=== PATIENT | female | born 1960 | race Caucasian/White ===

== ENCOUNTER 2016-09-12 12:34 | Day surgery (SDC) | payer BC ==
[2016-09-10 13:56] LABS: BASOPHILS 0.2 %; BASOPHILS ABSOLUTE 0.02 10/3/uL (0.0-0.16); EOSINOPHILS ABSOLUTE 0.18 10/3/uL (0.0-0.53); HEMATOCRIT 42.9 % (36.0-48.0); IMMATURE GRANULOCYTES 0.7 %; IMMATURE GRANULOCYTES ABSOLUTE 0.06 10/3/uL (0.0-0.11); LYMPHOCYTES 21.6 %; LYMPHOCYTES ABSOLUTE 1.95 10/3/uL (0.67-4.30); MEAN CORPUS HGB CONC 32.6 g/dL (32.0-36.0); MEAN CORPUSCULAR HEMOGLOB 30.8 pg (26.0-34.0); MEAN CORPUSCULAR VOLUME 94.3 fL (80-100); MEAN PLATELET VOLUME 9.7 fL (9.2-13.0); MONOCYTES 7.4 %; MONOCYTES ABSOLUTE 0.67 10/3/uL (0.21-1.20); NEUTROPHILS 68.1 %; NEUTROPHILS ABSOLUTE 6.15 10/3/uL (2.02-8.40); PLATELET COUNT 304 10/3/uL (150-400); RBC DISTRIBUTION WIDTH 14.5 % (12.0-16.0); RED CELL COUNT 4.55 10/6/uL (4.0-5.6)
[2016-09-10 13:57] LABS: MANUAL DIFF NO %
[2016-09-10 14:11] LABS: A/G RATIO 1.3 (0.7-1.9); ALKALINE PHOSPHATASE 55 U/L (45-117); BUN (BLOOD UREA NITROGEN) 8 MG/DL (6-23); CALCIUM, SERUM 9.8 MG/DL (8.5-10.4); CHLORIDE, SERUM 100 MMOL/L (96-112); CO2 (CARBON DIOXIDE) 31 MMOL/L (24-34); CREATININE 0.66 MG/DL (0.55-1.02); GFR AFRICAN AMERICAN 115 ML/MIN (>=60); GFR NON AFRICAN AMERICAN 99 ML/MIN (>=60); GLUCOSE, SERUM 69 MG/DL (60-99); POTASSIUM, SERUM 4.4 MMOL/L (3.5-5.3); SGOT(AST) 12 U/L (5-40); SGPT(ALT) 25 U/L (5-65); SODIUM, SERUM 139 MMOL/L (135-148); TOTAL BILIRUBIN 0.7 MG/DL (0-1.2)
--- NOTE | ~2016-09-12 | PREOPHP ---
PreOp History and Physical [id number] [place]. [address] NAME: JOSSELYN STOVER : 62 STATUS : [facility]#: [id number] AGE: 56 ADM/REG DATE : 09/12/16 MR#: [id number] REPORT SERV DATE: 09/24/16 DICTATED BY: KIT WRIGHT III DATE: 09/08/16 REPORT STATUS : Draft TRANSCRIBED BY: AZAM DATE: 09/08/16 HISTORY OF PRESENT ILLNESS: This 56-year-old female comes to the operating room for a left axillary lymph node biopsy to facilitate the diagnosis of lymphoma. The patient is recently diagnosed with a follicular lymphoma. She notes a submandibular knot on the left side of her face, which was noticed at the end of 2014. Her chiropractor ordered a CT scan, which showed diffuse lymph nodes which were nonspecific. She was given multiple courses of antibiotics, but the lymph nodes did not go away. She recently saw an ENT physician and a fine-needle aspirate was performed, which shows low-grade follicular lymphoma. Her current PET scan shows diffuse lymphadenopathy with the most prominent active lymph node being in the left axilla. She comes now for left axillary lymph node biopsy to confirm and characterize her lymphoma. The patient complains of difficulty with her salivary glands. She has had intermittent neck swelling and pain since 2014. The patient has had a previously palpable left axillary lymph node. However, she states she took a round of steroids and the lymph node was no longer palpable. MEDICATIONS: Klonopin, Minivelle, Prozac, turmeric, vitamins, Wellbutrin, Spirulina, Depakote. PAST MEDICAL HISTORY: Otherwise unremarkable, except for recently diagnosed follicular lymphoma. ALLERGIES: NONE. PAST SURGICAL HISTORY: Status post hysterectomy. FAMILY HISTORY: Positive for breast cancer, heart disease, and leukemia. SOCIAL HISTORY: The patient has a history of tobacco abuse. She has a history of alcohol use. REVIEW OF SYSTEMS: The patient complains of weight loss, and her 14-point review of systems is otherwise unremarkable. PHYSICAL EXAMINATION: GENERAL: This is an obese female, in no acute distress. She is alert and oriented x3. VITAL SIGNS: Blood pressure 114/66, pulse 74, temperature 97. NECK: Remarkable for bilateral submandibular masses. No discrete axillary lymph nodes are palpable, although these are seen on CT scan. She has bilateral submandibular masses palpable. NEUROLOGIC: Cranial nerves 2 through 12 are normal. LUNGS: Clear. CARDIAC: Normal. ABDOMEN: Soft and nontender. PreOp History and Physical [address] [address] NAME: JOSSELYN STOVER : 62 STATUS : [facility] PAT#: [id number] AGE: 56 ADM/REG DATE : 09/12/16 MR#: [id number] REPORT SERV DATE: 09/24/16 DICTATED BY: KIT WRIGHT III DATE: 09/08/16 REPORT STATUS : Draft TRANSCRIBED BY: AZAM DATE: 09/08/16 LABORATORY DATA: Recent PET scan shows findings consistent with lymphoma involving bilateral parotids, submandibular glands, small upper cervical lymph nodes, bilateral left greater than right axillary lymph nodes which are FDG avid, bulky left mesenteric lymph node, retroperitoneal nodes, left external iliac and bilateral inguinal lymph nodes. There is noted to be a 2.8 cm left axillary lymph node, which is particularly FDG avid. This is a level 1 lymph node. ASSESSMENT: 1. 56-year-old female with a follicular lymphoma by fine-needle biopsy, with need for excision of an entire lymph node to complete workup and characterization of this lymphoma. 2. Obesity. 3. Depression. PLAN: The patient comes to the operating room now for a left axillary lymph node excisional biopsy. This procedure, the risks, benefits, and alternatives including, but not limited to the risk for bleeding; infection; pain; swelling; scarring; deformity to the area; seroma formation; hematoma formation; lymphatic drainage; nerve injury, chronic paresthesia or pain in the arm, shoulder, or axilla; nerve injury, muscle weakness or paralysis in the muscles of upper back or shoulder; and unforeseen complications including deep venous thrombosis, pulmonary embolus, myocardial infarction, stroke, pneumonia, and have been explained to the patient prior to surgery. Her questions have been answered, and she understands the risks and agrees to surgery as planned. [facility]/AZAM Kit Wright III, M.D. / [id number] CC: Vega Rosa Jr., M.D.
--- NOTE | ~2016-09-12 | OP ---
Record Of Operation [facility] [address] [place]. [address] NAME: JOSSELYN STOVER : 62 STATUS : [facility]#: [id number] AGE: 56 ADM/REG DATE : 09/12/16 MR#: [id number] REPORT SERV DATE: 09/12/16 DICTATED BY: KIT WRIGHT III DATE: 09/12/16 REPORT STATUS : Draft TRANSCRIBED BY: MODAbhay DATE: 09/12/16 DATE OF PROCEDURE: 09/12/2016 PREOPERATIVE DIAGNOSIS: Probable malignant lymphoma, with need for complete axillary lymph node resection and Port-A-Cath placement to allow for chronic IV access for chemotherapy. PREOPERATIVE DIAGNOSIS: Probable malignant lymphoma, with need for complete axillary lymph node resection and Port-A-Cath placement to allow for chronic IV access for chemotherapy. PROCEDURES: 1. Right subclavian vein Port-A-Cath placement with fluoroscopy. 2. Excision of deep left axillary lymph node. ANESTHESIA: General with intubation. COMPLICATIONS: None. ESTIMATED BLOOD LOSS: Less than 5 mL. SPECIMENS: Left axillary lymph node x2. DRAINS: None. LAP AND SPONGE COUNT: Correct x3. BRIEF HISTORY: This 56-year-old female was recently diagnosed with lymphoma, on core needle biopsy. It was felt that excisional biopsy of a very FDG avid, enlarged left axilla lymph node was indicated. In addition, her medical oncologist had requested subclavian vein Port- A-Cath placement to allow for chronic IV access for chemotherapy. These procedures, the risks, benefits, and alternatives, including but not limited to the risk for bleeding, infection, pneumothorax, air embolus, pericardial tamponade, failure of the port to function, infection of the port or subclavian vein thrombosis requiring removal the port, dislodgement of the Port-A-Cath tubing requiring extraction, and unforeseen complications including deep venous thrombosis, pulmonary embolus, myocardial infarction, stroke, pneumonia, and , were fully and completely explained to the patient prior to surgery. The possibility of nerve injury, chronic paresthesia, pain in the arm, shoulder or axilla, pain in the axilla, seroma formation or hematoma formation in the axilla, nerve injuries, muscle weakness or paralysis in muscles of upper back or shoulder, chronic lymphedema of the arm, and unforeseen complications including deep venous thrombosis, pulmonary embolus, myocardial infarction, stroke, pneumonia, and , were explained the patient prior to surgery. Her questions were answered. She understood the risks and agreed to surgery as planned. DESCRIPTION OF PROCEDURE: After being properly identified and after discussing the risks of surgery with her again in the preoperative area, and after identifying and palpating the Record Of Operation [address] [place]. [address] NAME: JOSSELYN STOVER : 62 STATUS : [facility]#: [id number] AGE: 56 ADM/REG DATE : 09/12/16 MR#: [id number] REPORT SERV DATE: 09/12/16 DICTATED BY: KIT WRIGHT III DATE: 09/12/16 REPORT STATUS : Draft TRANSCRIBED BY: AZAM DATE: 09/12/16 enlarged left axillary lymph node, the patient was taken to the operating room and placed in the supine position on the operating room table. General anesthesia was administered. She was intubated without difficulty. The chest and neck and left arm and axilla were prepped and draped sterilely in the usual fashion. After an appropriate "time-out" per JCAHO standards, an 18-gauge needle was used to identify the right subclavian vein. The vein was identified on the first pass of the needle. A guidewire was passed through the needle, and the needle was removed. Fluoroscopy was performed, confirming the tip of the guidewire to be in the correct position in the superior vena cava. A small transverse incision was then made at the exit site of the guidewire from the skin. A subcutaneous pocket was made of the appropriate size for the Port-A-Cath housing. The Port-A-Cath housing and tubing were assembled. Fluoroscopy was performed, confirming the tip of the guidewire to be in the correct position in the superior vena cava. The Port-A-Cath housing was cut to the appropriate length and the housing and tubing were flushed with a heparin solution. The introducer was placed over the guidewire. The guidewire and inner dilator were removed. The Port-A-Cath tubing was then passed through the sheath as the sheath was peeled away. This went very smoothly. The Port-A-Cath housing was positioned in the infraclavicular pocket. It was secured in place with 2-0 silk sutures. Repeat fluoroscopy was performed, confirming the tip of the Port-A-Cath tubing to be in the correct position in the superior vena cava. The port was accessed with a Lucio needle. It was noted to aspirate blood easily. It was then flushed with heparin solution and noted to flush easily. Hemostasis was assured. The subcutaneous tissue was closed with running 3-0 chromic suture. The skin was closed with running subcuticular 4-0 Monocryl stitch. The incision was injected 0.5% Marcaine. We then turned our attention to the left axilla. An incision was made transversely in the left axilla over the palpable lymph node. The incision continued through subcutaneous tissue. Hemostasis was controlled with cautery. The incision was continued through the subcutaneous tissue down to the axilla. The axillary vein was identified. Inferior to this was extremely large lymph node about 3 cm in diameter. Using sharp dissection, this lymph node was carefully dissected free from the surrounding tissues. There was a small adjacent lymph node which was also resected and removed. The thoracodorsal nerve was identified. This was in the area and was carefully protected and not encroached upon or injured. Hemostasis was assured. The subcutaneous tissue was closed with a running 3-0 chromic suture and skin was closed with running subcuticular 4-0 Monocryl stitch. The incision was injected with 0.5% Marcaine. Dressings were applied. Anesthesia was reversed. The patient was taken to the recovery room in stable condition. She tolerated the procedure well. Her family was informed results of surgery. The patient will be discharged when stable and comfortable after chest x-ray has been cleared per Radiology. Her family was advised that she should keep the wounds clean and dry for 48 hours, that she should not drive for three to four days after surgery or while using narcotics and that she should resume her usual medications. She was asked to return in two weeks for followup or sooner if any fever, chills, wound drainage, or other problems prior to that time. She was given a prescription for Percocet 7.5 one t.i.d., #12, as needed for pain, which she was advised not to use while driving. Frozen section of the lymph node confirmed lymphoma. Record Of Operation [facility] [address] [place]. [address] NAME: JOSSELYN STOVER : 62 STATUS : [facility] PAT#: [id number] AGE: 56 ADM/REG DATE : 09/12/16 MR#: [id number] REPORT SERV DATE: 09/12/16 DICTATED BY: KIT WRIGHT III DATE: 09/12/16 REPORT STATUS : Draft TRANSCRIBED BY: AZAM DATE: 09/12/16 [facility]/AZAM Kit Wright III, M.D. / [id number] CC: Vega Reyna III, M.D.
[~2016-09-12 12:34] MED LIST: DEPAKOTEER PO; KLONO5 PO; MINIVELLE1 EAC1 TOP; PROZAC PO; TURMERIC; VITAMIN B COMPLEX PO; VITAMIN D1000 UNI1 PO; WELLXL150 PO; [UNRECOGNIZED DRUG - OTHER]
[2016-09-23] MEDS ORDERED: ATV.5 PO (13:37)
[2016-09-23] MEDS ORDERED: NEULASTA SC (13:39)
[2016-09-23] MEDS ORDERED: OXYCOD PO (13:40)
[2016-09-23] MEDS ORDERED: CLARIT10 PO (13:42)
[2016-09-23] MEDS ORDERED: MIRALAX POWDER1 PKT PO (13:43)
[2016-09-23] MEDS ORDERED: ZOFRAN8 PO (13:44)
[2016-09-23] MEDS ORDERED: ZANTAC 75 PO (13:44)
[2016-09-23] MEDS ORDERED: MUCINEX600 MG PO (13:45)
[2016-09-23] MEDS ORDERED: GAS-X PO (13:46)
[2016-09-23] MEDS ORDERED: MD ANDERSON PO (13:48)
== END 2016-09-12 17:30 | disposition home or self-care (01) ==
LOC: SDC 12:34
PROVIDERS: Surgery
PROC: 05H533Z Insertion of Infusion Device into Right Subclavian Vein, Percutaneous Approach (ICD-10-PCS; 2016-09-12)
PROC: B516YZA Fluoroscopy of Right Subclavian Vein using Other Contrast, Guidance (ICD-10-PCS; 2016-09-12)
PROC: 07B60ZX Excision of Left Axillary Lymphatic, Open Approach, Diagnostic (ICD-10-PCS; principal; 2016-09-12 14:00)
PROC: 0JH60XZ Insertion of Tunneled Vascular Access Device into Chest Subcutaneous Tissue and Fascia, Open Approach (ICD-10-PCS; 2016-09-12 14:00)
DX: C82.34 Follicular lymphoma grade IIIa, lymph nodes of axilla and upper limb (principal); F32.9 Major depressive disorder, single episode, unspecified; E66.9 Obesity, unspecified; J44.9 Chronic obstructive pulmonary disease, unspecified; K21.9 Gastro-esophageal reflux disease without esophagitis; Z90.710 Acquired absence of both cervix and uterus; Z80.3 Family history of malignant neoplasm of breast; Z82.49 Family history of ischemic heart disease and other diseases of the circulatory system; Z87.891 Personal history of nicotine dependence; Z68.30 Body mass index [BMI] 30.0-30.9, adult; Z79.899 Other long term (current) drug therapy; Z90.89 Acquired absence of other organs; Z98.890 Other specified postprocedural states
CPT/HCPCS: 71010; 71020; 77001; 80053; 85025; 88307; 88333; 88341; 88342; 93005; A9270-GY; C1751; J0690; J2250; J2270; J2405; J3010